=== PATIENT | male | born 1970 | race Caucasian/White ===

== ENCOUNTER → 2019-05-17 08:29 | Outpatient (POV) | payer OTHER, SELFPAY ==
[2019-05-17 08:39] VITALS: BP 141/84; PULSE 77; RESP 18; O2SAT 98; BMI 33.3
--- NOTE | 2019-05-17 12:49 | HMH.PMCON ---
Assessment and Plan (1) Neuralgia Current visit: Yes Status: Chronic Category: Medical Code(s): M79.2 - Neuralgia and neuritis, unspecified - Assessment and plan all Dx Assessment and Plan for all problems:: We will schedule him for a peripheral nerve block in that area to see if this is beneficial we will also switch him to Lyrica 75 mg 1 p.o. twice daily instead of the gabapentin and see if that is beneficial. Patient and I discussed that potentially we may need to think about a neurostimulator but at this time we will start with a peripheral nerve block. I will follow-up with the patient after his injection reassess his symptoms at that time he is been instructed to call the office if he has any issues prior to his next appointment. Dr. Olguin has reviewed this note and agrees with this plan of care. This note was dictated using voice recognition software and may contain errors or omissions HPI - Data of Consult Consult date: 05/17/19 Requesting Physician: Zuri Hobbs APRN Primary Care Provider: Elfego Luz MD - Consult Narrative Reason for consult: Abdominal pain/intercostal pain History of present illness: Mr. Mahajan is a 49 year old male who presents today for consultation in regards to his right upper quadrant abdominal pain/intercostal pain. He rates his pain a 3 out of 10 however it flares up to 10 out of 10 at times. Patient has had quite a significant work-up in regards to this. He has been through many diagnostic procedures including MRIs. Patient at first was treated for costochondritis however it was determined that that was not the cause of his pain. Patient does have negative MRIs. He has a very focal pain below his right lower rib that is about 3 inches in diameter. Patient states the pain does radiate sometimes when he is aggravating it with movement. Patient has been on gabapentin. He has not had any relief with this. He is also tried multiple other medication medications without relief. He had his gallbladder removed hoping that this would solve the pain however it did not. He also had his appendix removed hoping it would resolve the pain however it has not. He describes the pain as a constant sensation is very nervelike. He has cold and hot sensations. Patient does not remember any specific trauma however on questioning his stated that prior to the pain he did suffer a significant fall. CC: Zuri Hobbs APRN [facility] History I have reviewed the patient's past medical history: Yes *Have you ever received a pneumonia vaccine?: Yes *Have you received a flu vaccine this season?: Yes - *Social History Smoking Status: Never smoker Alcohol Intake: never *Occupational Status:: other Housing: house Household Members: other *Travel in the last 8 weeks: None Family Hx:: Non-contributory Review of Systems - Review of Systems ROS General: no recent weight change, no fever, no sleep disturbances Respiratory: no cough, no shortness of air, no recurring pulmonary infections Cardiovascular/Peripheral Vascular: No chest pain, No palpitations, no edema, no shortness of breath. Gastrointestinal: no incontinence, normal bowel movements reported Genitourinary: no incontinence Musculoskeletal: Right upper quadrant pain Psychiatric: normal mood/ affect, Neurological: [denies weakness in extremities], [denies balance issues] Objective Vital signs: Pulse Resp BP Pulse Ox 77 18 141/84 H 98 05/17/19 08:39 05/17/19 08:39 05/17/19 08:39 05/17/19 08:39 Narrative: Physical Exam General: Alert and oriented x3, no acute distress, pleasant and cooperative, [on room air] Lungs: Resps E/U, Symmetrical chest expansion Eyes: PERRL Musculoskeletal: Palpation of right upper quadrant somewhat guarded secondary to pain, deep tendon reflexes normal, strength in upper and lower extremities [5/5], normal gait noted Neurological: speech clear, 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
--- NOTE | 2019-05-17 12:52 | P.CONS_ITS ---
Assessment and Plan (1) Neuralgia Current visit: Yes Status: Chronic Category: Medical Code(s): M79.2 - Neuralgia and neuritis, unspecified - Assessment and plan all Dx Assessment and Plan for all problems:: We will schedule him for a peripheral nerve block in that area to see if this is beneficial we will also switch him to Lyrica 75 mg 1 p.o. twice daily instead of the gabapentin and see if that is beneficial. Patient and I discussed that potentially we may need to think about a neurostimulator but at this time we will start with a peripheral nerve block. I will follow-up with the patient after his injection reassess his symptoms at that time he is been instructed to call the office if he has any issues prior to his next appointment. Dr. Olguin has reviewed this note and agrees with this plan of care. This note was dictated using voice recognition software and may contain errors or omissions HPI - Data of Consult Consult date: 05/17/19 Requesting Physician: Zuri Hobbs APRN Primary Care Provider: Elfego Luz MD - Consult Narrative Reason for consult: Abdominal pain/intercostal pain History of present illness: Mr. Mahajan is a 49 year old male who presents today for consultation in regards to his right upper quadrant abdominal pain/intercostal pain. He rates his pain a 3 out of 10 however it flares up to 10 out of 10 at times. Patient has had quite a significant work-up in regards to this. He has been through many diagnostic procedures including MRIs. Patient at first was treated for costochondritis however it was determined that that was not the cause of his pain. Patient does have negative MRIs. He has a very focal pain below his right lower rib that is about 3 inches in diameter. Patient states the pain does radiate sometimes when he is aggravating it with movement. Patient has been on gabapentin. He has not had any relief with this. He is also tried multiple other medication medications without relief. He had his gallbladder removed hoping that this would solve the pain however it did not. He also had his appendix removed hoping it would resolve the pain however it has not. He describes the pain as a constant sensation is very nervelike. He has cold and hot sensations. Patient does not remember any specific trauma however on questioning his stated that prior to the pain he did suffer a significant fall. CC: Zuri Hobbs APRN [facility] History I have reviewed the patient's past medical history: Yes *Have you ever received a pneumonia vaccine?: Yes *Have you received a flu vaccine this season?: Yes - *Social History Smoking Status: Never smoker Alcohol Intake: never *Occupational Status:: other Housing: house Household Members: other *Travel in the last 8 weeks: None Family Hx:: Non-contributory Review of Systems - Review of Systems ROS General: no recent weight change, no fever, no sleep disturbances Respiratory: no cough, no shortness of air, no recurring pulmonary infections Cardiovascular/Peripheral Vascular: No chest pain, No palpitations, no edema, no shortness of breath. Gastrointestinal: no incontinence, normal bowel movements reported Genitourinary: no incontinence Musculoskeletal: Right upper quadrant pain Psychiatric: normal mood/ affect, Neurological: [denies weakness in extremities], [denies balance issues] Objective Vital signs: Pulse Resp BP Pulse Ox 77 18 141/84 H 98 05/17/19 08:39 05/17/19 08:39 05/17/19 0
== END ==
PROVIDERS: PCP Internal Medicine Adolescent Medicine; Visit Provider Clinical Nurse Specialist Family Health
DX: M79.2 Neuralgia and neuritis, unspecified (principal)
CPT/HCPCS: 99202

== ENCOUNTER → 2019-06-17 08:57 | Outpatient (POV) | payer OTHER, SELFPAY ==
--- NOTE | 2019-06-17 09:34 | HMH.PAINSOAP ---
[facility] Pain Management SOAP Note Subjective:: This patient is a pleasant 49-year-old white male who we have been treating for right-sided intercostal neuralgia. He had intercostal nerve blocks which only gave him temporary relief. I believe most of this pain is coming from his thoracic spine. I believe he needs a thoracic epidural steroid injection in the region of T7-T8 or T8-T9. I believe this is a source of his pain. His MRI does not show much however pathology may be worse than what is shown on imaging. I believe most of his symptoms are related to thoracic radiculopathy. We will seek approval and plan on a thoracic epidural steroid injection under fluoroscopy. Objective:: Alert and oriented x3 no acute distress. Patient does have an antalgic gait. Motor strength of the upper extremities is 5/5. There is no gross sensory deficit. He does have some tenderness over thoracic spine. 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 I believe most of this patient's pain is due to to thoracic radicular symptoms. [facility] History I have reviewed the patient's past medical history: Yes Medical History: Denies:: Cancer, Diabetes Mellitus Type 1, Diabetes Mellitus Type 2, MRSA, Seizures *Have you ever received a pneumonia vaccine?: Yes *Have you received a flu vaccine this season?: Yes Other Surgeries: Yes: No Previous Surgery Amputation: No Fractures: No - *Social History Smoking Status: Never smoker Alcohol Intake: never *Occupational Status:: other Housing: house Household Members: spouse *Travel in the last 8 weeks: Inside the [facility] Family Hx:: Non-contributory
== END ==
PROVIDERS: PCP Internal Medicine Adolescent Medicine; Visit Provider Anesthesiology
DX: M79.2 Neuralgia and neuritis, unspecified (principal)

== ENCOUNTER → 2019-07-01 11:21 | Outpatient (CLI) | payer OTHER, SELFPAY ==
[2019-07-01 13:47] LABS: Alanine Aminotransferase 57 U/L (12-78); Albumin Level 4.1 gm/dL (3.4-5.0); Albumin/Globulin Ratio 1.2 (1.1-1.8); Alkaline Phosphatase 126 U/L (46-116); Anion Gap 12.3 mEq/L (5-15); Aspartate Amino Transferase 14 U/L (15-37); Bilirubin,Total 0.4 mg/dL (0.2-1.0); Blood Urea Nitrogen 13 mg/dL (7-18); Calcium 8.9 mg/dL (8.5-10.1); Carbon Dioxide 27 mmol/L (21.0-32.0); Chloride 106 mmol/L (98-107); Chol/HDL Ratio 5.4 (1-3.5); Cholesterol 162 mg/dL (140-200); Creatinine,Serum 0.96 mg/dL (0.70-1.30); Estimated Glomerular Filt Rate 84 ml/min (>60); GFR (African American) 102 ML/MIN (>60); Globulin 3.4 gm/dl (1.3-3.2); Glucose 99 mg/dL (74-106); HDL Cholesterol 30 mg/dL (27-67); LDL Cholesterol 80 mg/dL (0-130); Potassium 4.3 mmoL/L (3.5-5.1); Sodium 141 mmol/L (136-145); Thyroid Stimulating Hormone 0.73 uIU/ml (0.358-3.740); Total Protein,Serum 7.5 gm/dL (6.4-8.2); Triglycerides 258 mg/dL (30-200); VLDL Cholesterol 52 mg/dL (0-40)
[2019-07-01 14:17] LABS: Basophils # 0.1 K/mm3 (0-0.2); Basophils % 1.3 % (0.1-2.0); Eosinophils # 0.1 K/mm3 (0.0-0.4); Eosinophils % 2.3 % (0.1-12.0); Hematocrit 46.9 % (42.0-52.0); Hemoglobin 15.2 g/dL (14.1-18.0); Lymphocytes # 2.1 K/mm3 (0.7-4.5); Lymphocytes % 47.8 % (10-50); Mean Corpuscular HGB Conc 32.4 g/dL (31.8-35.4); Mean Corpuscular Hemoglobin 32.6 pg (27.0-31.2); Mean Corpuscular Volume 100.8 fl (80-94); Mean Platelet Volume 9.1 fl (7.4-10.4); Monocytes # 0.3 K/mm3 (0.1-1.0); Monocytes % 6.4 % (1.7-9.3); Neutrophils # 1.8 K/mm3 (1.8-7.8); Neutrophils % 42.2 % (37.0-80.0); Platelet Count 200 K/mm3 (142-424); Red Blood Count 4.66 M/mm3 (4.60-6.20); Red Cell Distribution Width 13.5 % (11.5-17.5); White Blood Count 4.3 K/mm3 (4.8-10.8)
[2019-07-02 08:56] LABS: Free T4 (Free Thyroxine) 0.85 ng/dl (0.76-1.46)
[2019-07-02 18:54] LABS: Vitamin B12 337 pg/mL (232-1245)
== END ==
PROVIDERS: Visit Provider Nurse Practitioner Family
DX: R55 Syncope and collapse (principal); R03.0 Elevated blood-pressure reading, without diagnosis of hypertension; R53.81 Other malaise
CPT/HCPCS: 36415; 80053; 80061; 82607; 84436; 84439; 84443; 85025

== ENCOUNTER → 2020-02-20 14:39 | Outpatient (CLI) | payer OTHER, SELFPAY ==
--- NOTE | 2020-02-20 14:49 | XR_ITS ---
PROCEDURE: XR SHOULDER RT MIN 2V CLINICAL INDICATION: RT SHOULDER PAIN COMPARISON: No exams were available for comparison FINDINGS: There are mild osteoarthritic changes of the acromioclavicular joint. The glenohumeral joint has an unremarkable appearance. No acute fracture or dislocation. IMPRESSION: Mild osteoarthritis of the AC joint otherwise negative Dictated by: Terry Hyman MD 02/20/2020 15:33 Electronically signed by Terry Hyman MD in [place] 02/20/2020 15:33
== END ==
LOC: RAD 14:41
PROVIDERS: PCP Internal Medicine Adolescent Medicine; Visit Provider Internal Medicine Adolescent Medicine
DX: M25.511 Pain in right shoulder (principal)
CPT/HCPCS: 73030